=== PATIENT | female | born 1990 | race Hispanic/Latino ===

== ENCOUNTER 2018-12-17 11:27 | Emergency (ER) | payer MEDICARE ==
[~2018-12-17] VITALS: Ht 152.4 cm; Wt 88.5 kg
[2018-12-17 12:06] LABS: BASOPHILS % 0.3 % (0.0-1.0); EOSINOPHILS # (AUTO) 0.1 (0.0-0.4); EOSINOPHILS % 0.9 % (0.0-6.0); HEMATOCRIT 35.4 % (34.2-44.1); HEMOGLOBIN 12.1 g/dL (12.0-16.0); LYMPHOCYTES # (AUTO) 1.8 (1.0-3.2); LYMPHOCYTES % 20.8 % (18.0-39.1); MEAN CORPUSCULAR HEMOGLOBIN 30.9 pg (28-32); MEAN CORPUSCULAR HGB CONC 34.2 g/dL (31-35); MEAN CORPUSCULAR VOLUME 90.5 fL (81-99); MONOCYTES # (AUTO) 0.4 (0.2-0.8); MONOCYTES % 4.5 % (4.4-11.3); NEUTROPHILS # (AUTO) 6.5 (2.1-6.9); PLATELET COUNT 183 x10e3/uL (140-360); RED BLOOD COUNT 3.91 x10e6/uL (3.6-5.1); RED CELL DISTRIBUTION WIDTH 12.3 % (11.7-14.4)
[2018-12-17 12:23] LABS: BILIRUBIN,URINE NEGATIVE (NEGATIVE); CLARITY,URINE SL CLOUDY (CLEAR); COLOR,URINE YELLOW (YELLOW); KETONES,URINE 1+ (NEGATIVE); LEUKOCYTE ESTERASE ,URINE MODERATE (NEGATIVE); NITRITE,URINE NEGATIVE (NEGATIVE); PROTEIN,URINE DIPSTICK TRACE (NEGATIVE); URINE UROBILINOGEN 0.2 mg/dL (0.2 - 1)
[2018-12-17 12:41] LABS: BACTERIA,URINE FEW /HPF; RBC,URINE 0-5 /HPF (0-5); WBC,URINE (MAN) 0-5 /HPF (0-5)
[2018-12-17 12:42] LABS: EPITHELIAL CELLS,URINE MODERATE /LPF
--- NOTE | 2018-12-17 13:38 | Diagnostic Imaging Report ---
EXAM: US OB TRANSVAG 1ST TRI SINGLE INDICATION: Bleeding COMPARISON: None TECHNIQUE: Transabdominal and transvaginal grayscale and color doppler sonographic images of the pelvis were obtained. Transvaginal imaging was medically necessary to better evaluate the fetus. FINDINGS: UTERUS: Orientation: Anteverted Size: 10 x 7.4 x 8.5 Mass: Multiple pelvic fibroids, largest 3.6 cm. Cervix: Normal GESTATIONAL SAC: Intrauterine, normal in appearance. No subchorionic hemorrhage. YOLK SAC: Visualized EMBRYO/FETUS: Lamkin-rump length: 4.5 cm Estimated sonographic gestational age: 11 weekw 2d Cardiac activity: 160 bpm RIGHT OVARY: Size: 3.8 x 1.9 x 3.9 Abnormal mass/cyst: None LEFT OVARY: Size: 4.7 x 2.7 x 2.9 Abnormal mass/cyst: 2.2 cm left corpus luteum.. No free pelvic fluid or adnexal mass. IMPRESSION: Single living intrauterine . Sonographic gestational age estimated at 11weeks 2days. Signed by: Dr. Jose De Jesus Campos M.D. on 12/17/2018 1:35 PM
== END 2018-12-17 14:13 | disposition home or self-care (01) ==
LOC: ER 11:27
DX: O46.91 Antepartum hemorrhage, unspecified, first trimester (principal); Z3A.11 11 weeks gestation of pregnancy
CPT/HCPCS: 36415; 76817; 81001; 84702; 85025; 86900; 99283